=== PATIENT | male | born 1965 | race Caucasian/White ===

== ENCOUNTER 2016-07-17 09:49 | Inpatient (IN) | payer OTHER ==
[~2016-07-17] VITALS: Ht 177.8 cm; Wt 80.6 kg
[2016-07-17] VITALS (7 sets, daily range): BP systolic 127–145; BP diastolic 78–83; PULSE 81–104; TEMP 36.4–37.2; O2SAT 94–100; Ht 177.8 cm; Wt 80.6 kg
[2016-07-17] MEDS ORDERED: HYDROmorphone INJ 1 MG/ML SYR ONE (10:02)
[2016-07-17] MEDS ORDERED: SODIUM CHLORIDE 0.9% 1000ML 1,000 ML IV STA (10:03)
[2016-07-17] MEDS ORDERED: ONDANSETRON INJ 2 MG/ML 2 ML VIAL ONE (10:04)
[2016-07-17] MEDS ORDERED: KETOROLAC TROMETHAMINE 30 MG/ML VIAL ONE (10:12)
[2016-07-17] MEDS ORDERED: KETOROLAC TROMETHAMINE 30 MG/ML VIAL IV STA (10:13)
[2016-07-17 10:15] LABS: ISTAT CREATININE 0.9 mg/dl (0.6-1.3); ISTAT HEMOGLOBIN 13.9 g/dl (14.0-18.0); ISTAT IONIZED CALCIUM 1.16 mmol/l (1.12-1.32)
[2016-07-17] MEDS ORDERED: HYDROmorphone INJ 1 MG/ML SYR IV PRN (10:15)
[2016-07-17 10:16] LABS: BASO % 0.2 %; BASO ABS # 0.02 K/uL (0-0.2); COMPLETE YES; EOS % 2.5 %; HEMATOCRIT 39.8 % (42-52); IG% 0.7 %; LYMPH % 23.1 %; MEAN CELL VOLUME 86.9 fL (80-100); MEAN CORPUSCULAR HEMOGLOBIN 31.9 pg (25-34); MEAN CORPUSCULAR HGB CONC 36.7 g/dl (32-36); MEAN PLATELET VOLUME 10.1 fL (7.4-10.4); MONO % 4.6 %; NEUT % 68.9 %; PLATELET COUNT 243 K/uL (130-400); RED BLOOD COUNT 4.58 M/uL (4.7-6.1); WHITE BLOOD COUNT 8.67 K/uL (4.8-10.8)
[2016-07-17 10:30] LABS: ALT/SGPT 25 U/L (12-78); AST/SGOT 13 U/L (15-37); BLOOD UREA NITROGEN 17 mg/dl (7-18); BUN/CREATININE RATIO 15.9 (10-20); CALCIUM 8.3 mg/dl (8.5-10.1); CARBON DIOXIDE 23 mmol/L (21-32); CHLORIDE 109 mmol/L (98-107); GLUCOSE 120 mg/dl (70-99); POTASSIUM 3.6 mmol/L (3.5-5.1); SODIUM 143 mmol/L (136-145)
[2016-07-17 10:32] LABS: ALKALINE PHOSPHATASE 45 U/L (45-117)
--- NOTE | 2016-07-17 10:32 | DIAGNOSTIC IMAGING REPORT ---
ABDOMEN AND PELVIS CT WITHOUT CONTRAST CT DOSE: 619.72 mGy.cm HISTORY: Flank pain FLANK PAIN TECHNIQUE: Multiaxial CT images of the abdomen and pelvis were performed without the use of intravenous and oral contrast according to the standard department stone protocol. COMPARISON STUDY: None. FINDINGS: Lung bases are clear. Liver demonstrates several small hypodensities statistically consistent with that of small cysts. Spleen is uniform. Pancreas is unremarkable. Right kidney demonstrates slight degree of cortical lobulation. It is negative for hydronephrosis. Left kidney shows moderate hydronephrosis and hydroureter. There is a 4 mm nonobstructing calcification lower pole left kidney. There is a small exophytic cyst. There is moderate periureteral infiltrative change. There is a 3 mm obstructing calculus left ureterovesical junction. Bladder is midline. There is a left inguinal hernia containing a small diverticulum of the bladder. There is a small right inguinal hernia showing no significant bowel content. Bowel pattern overall is nonobstructive. IMPRESSION: 1. 3 mm obstructing calculus left ureteral vesicle junction. 2. Moderate left hydroureteronephrosis. 3. Small diverticulum of the bladder extending into a left inguinal hernia. This is an incidental finding. Electronically signed by: Micheal Houston M.D. 07/17/2016 10:31 AM Dictated Date/Time: 07/17/2016 10:26 AM
[2016-07-17] MEDS ORDERED: PROMETHAZINE HCL INJ 25 MG in SODIUM CHLORIDE 0.9% 50ML 50 ML IV STA (11:01)
[2016-07-17] MEDS ORDERED: MULTTAB58 PO (11:44)
[2016-07-17] MEDS ORDERED: MoRPHine SULFATE 4 MG/ML 1 ML CARP\\VIAL IV PRN (11:45)
[2016-07-17] MEDS ORDERED: KETOROLAC TROMETHAMINE 30 MG/ML VIAL IV PRN (11:45)
[2016-07-17] MEDS ORDERED: ONDANSETRON INJ 2 MG/ML 2 ML VIAL IV PRN (11:45)
[2016-07-17] MEDS ORDERED: ACETAMINOPHEN 325 MG TAB PO PRN (11:45)
[2016-07-17 12:45] LABS: URINE APPEARANCE CLEAR (CLEAR); URINE BILIRUBIN NEG (NEG); URINE COLOR YELLOW; URINE NITRITE NEG (NEG); URINE PH 5.5 (4.5-7.5); URINE SPECIFIC GRAVITY 1.017 (1.000-1.030); UROBILINOGEN NEG (NEG)
[2016-07-17 12:56] LABS: MANUAL MICROSCOPIC REQUIRED? NO; REVIEW REQ? NO
[2016-07-17] MEDS ORDERED: TAMSULOSIN HCL 0.4 MG CAP PO ONE (13:30)
[2016-07-17] MEDS: SODIUM CHLORIDE 0.9% 1000ML 1,000 ML IV SCH ×2 (13:30→20:10)
--- NOTE | 2016-07-17 13:46 | History and Physical ---
History & Physical Date & Time of Service: Jul 17, 2016 at 11:45 Chief Complaint: Abdoninal Pain Primary Care Physician: No Doctor, Assigned History of Present Illness Source: patient This is a 51 y/o male with no known PMHx who presents to the ED c/o L lower abd pain that began this morning. Pt reports that around 0830 he developed 9/10 sharp/stabbing left lower abd pain that did not radiate anywhere. The pain was so severe he became lightheaded and felt like he might pass out. His sxs are assoc with nausea and 2 episodes of vomiting. Pt denies any medical problems but does not follow with his PCP regularly. Pt denies fever/chills, diaphoresis , chest pain, SOB, constipation, diarrhea, dysuria, hematuria, LE edema or calf pain. In the ED, vitals are stable. Pt is afebrile with no leukocytosis. CT abd/ pelvis + 3mm UVJ stone on L side with moderate hydronephrosis. Pt received IVF, pain medication and antiemetics in the ED. He currently rates his pain at a 5/ 10. Pt is stable and will be admitted for further evaluation and treatment. Past Medical/Surgical History Medical Problems: (1) Left inguinal hernia Status: Chronic Family History Patient reports no known family medical history. Social History Smoking Status: Never Smoker Alcohol Use: occasionally (twice monthly) Drug Use: none Marital Status: single Housing status: lives with family (lives with 6 y/o son) Occupational Status: employed Allergies Coded Allergies: Penicillins (Unverified Allergy, Unknown, ., 07/17/16) Home Medications Scheduled Multiple Vitamin (Multivitamin), 1 TAB PO DAILY Review of Systems Constitutional: No chills, No fatigue, No fever, No sweats, No weakness Eyes: No worsening of vision ENT: No hearing loss Respiratory: No cough, No shortness of breath Cardiovascular: No chest pain, No claudication, No edema Abdomen: + nausea, + pain, + vomiting, No constipation, No diarrhea Musculoskeletal: No calf pain, No swelling Genitourinary - Male: No dysuria, No hematuria, No urinary retention Neurologic: No weakness Psychiatric: No depression symptoms Endocrine: No fatigue Hematologic / Lymphatic: No abnormal bleeding/bruising Integumentary: No new/changing skin lesions Physical Exam Vital Signs Date Time Temp Pulse Resp B/P Pulse Ox O2 Delivery O2 Flow Rate FiO2 07/17/16 10:33 74 07/17/16 10:25 95 Nasal Cannula 2.0 07/17/16 10:16 86 20 143/95 98 Room Air 07/17/16 09:51 36.5 24 18 136/81 99 Room Air General Appearance: WD/WN, no apparent distress, + pertinent finding (Pt is laying in bed with brother at bedside ) Head: normocephalic, atraumatic Eyes: normal inspection ENT: normal ENT inspection Neck: supple Respiratory/Chest: chest non-tender, lungs clear, normal breath sounds, no respiratory distress Cardiovascular: regular rate, rhythm, no edema, no murmur Abdomen/GI: normal bowel sounds, soft, + tenderness (left lower quadrant) Back: normal inspection, no CVA tenderness Extremities/Musculoskelatal: normal inspection, no calf tenderness, no pedal edema Neurologic/Psych: alert, normal mood/affect, oriented x 3 Skin: normal color, warm/dry Diagnostics Laboratory Results Results Past 24 Hours Test 07/17/16 09:55 07/17/16 10:00 Range/Units White Blood Count 8.67 4.8-10.8 K/uL Red Blood Count 4.58 4.7-6.1 M/uL Hemoglobin 14.6 14.0-18.0 g/dL Hematocrit 39.8 42-52 % Mean Corpuscular Volume 86.9 80-100 fL Mean Corpuscular Hemoglobin 31.9 25-34 pg Mean Corpuscular Hemoglobin Concent 36.7 32-36 g/dl Platelet Count 243 130-400 K/uL Mean Platelet Volume 10.1 7.4-10.4 fL Neutrophils (%) (Auto) 68.9 % Lymphocytes (%) (Auto) 23.1 % Monocytes (%) (Auto) 4.6 % Eosinophils (%) (Auto) 2.5 % Basophils (%) (Auto) 0.2 % Neutrophils # (Auto) 5.97 1.4-6.5 K/uL Lymphocytes # (Auto) 2.00 1.2-3.4 K/uL Monocytes # (Auto) 0.40 0.11-0.59 K/uL Eosinophils # (Auto) 0.22 0-0.5 K/uL Basophils # (Auto) 0.02 0-0.2 K/uL RDW Standard Deviation 40.3 36.4-46.3 fL RDW Coefficient of Variation 12.6 11.5-14.5 % Immature Granulocyte % (Auto) 0.7 % Immature Granulocyte # (Auto) 0.06 0.00-0.02 K/uL Sodium Level 143 136-145 mmol/L Potassium Level 3.6 3.5-5.1 mmol/L Chloride Level 109 98-107 mmol/L Carbon Dioxide Level 23 21-32 mmol/L Anion Gap 11.0 20.0 16-25 mmol/L Blood Urea Nitrogen 17 7-18 mg/dl Creatinine 1.10 0.60-1.40 mg/dl Est Creatinine Clear Calc Drug Dose 82.0 ml/min Estimated GFR () 89.6 Estimated GFR (Non- 77.3 BUN/Creatinine Ratio 15.9 10-20 Random Glucose 120 70-99 mg/dl Calcium Level 8.3 8.5-10.1 mg/dl Total Bilirubin 0.2 0.2-1 mg/dl Direct Bilirubin < 0.1 0-0.2 mg/dl Aspartate Amino Transf (AST/SGOT) 13 15-37 U/L Alanine Aminotransferase (ALT/SGPT) 25 12-78 U/L Alkaline Phosphatase 45 45-117 U/L Total Protein 6.7 6.4-8.2 gm/dl Albumin 3.8 3.4-5.0 gm/dl Lipase 238 73-393 U/L Bedside Hemoglobin 13.9 14.0-18.0 g/dl Bedside Hematocrit 41 42-52 % Bedside Sodium 142 135-144 mEq/L Bedside Potassium 3.6 3.3-5.0 mEq/L Bedside Chloride 105 101-112 mEq/L Bedside Total CO2 21 24-31 mEq/l Bedside Blood Urea Nitrogen 18 7-18 mg/dl Bedside Creatinine 0.9 0.6-1.3 mg/dl Bedside Glucose (other) 124 70-99 mg/dl Bedside Ionized Calcium (Shakira) 1.16 1.12-1.32 mmol/l Diagnostic Radiology CT ABD/PELVIS IMPRESSION: 1. 3 mm obstructing calculus left ureteral vesicle junction. 2. Moderate left hydroureteronephrosis. 3. Small diverticulum of the bladder extending into a left inguinal hernia. This is an incidental finding. EKG EKG: NSR at 84 bpm with no acute ischemic change; no previous EKG available for comparison Impression Assessment and Plan L SIDED UVJ STONE pt presented with left lower abd pain assoc with N/V and lightheadedness dizziness -admit to med/surg -pt is afebrile with no leukocytosis; UA neg -CT abd/pelvis + 3mm calculus in L UVJ with mod hydronephrosis -cont IVF and Flomax -pain meds and anti-emetics PRN -strain urine -when stone passes; send stone for analysis -monitor DVT PROPHYLAXIS -Low VTE risk -SCDs CODE STATUS -FULL CODE status DISPO -Pt seen in collaboration with Dr. Justin. Please see her addendum for further details. Thanks! ATTENDING ADDENDUM Record reviewed. Patient interviewed and examined. Care coordinated with Pretty Latif PA-C. Please refer to her documentation for patient's history. This is a 51 yoM with no significant medical history and no history of nephrolithiasis who presents with significant pain 2/2 ureteral stone. He has intractable nausea and vomiting 2/2 to the pain despite attempts to control this in the ER, and so was admitted for supportive care. On exam he is hemodynamically stable and afebrile. Exam was unremarkable except for some somnolence after receiving IV narcotics in the ER an some LLQ abdominal tenderness to palpation. No CVA tenderness was appreciated. Lung and heart exam were normal. Agree with above assessment and plan including IVF, Flomax, clears and anti-emetics, pain meds as needed. Will attempt to help him pass this for 24 hours, then if still having issues, would recommend Urology consult. Urine will be strained with stone analysis pre-ordered. Pt was admitted to floor. Britt Justin DO (Hospitalist) Level of Care Med/Surg Resuscitation Status FULL RESUSCITATION VTE Prophylaxis VTE Risk Assessment Done? Y/N: Yes Risk Level: Low Given or contraindicated: SCD's Social Service Consult None Apply
--- NOTE | 2016-07-17 18:10 | EMERGENCY ROOM VISIT NOTE ---
History Report prepared by Lucila: Nick Vogel Under the Supervision of: Dr. Vic Saavedra M.D. First contact with patient: 09:50 Chief Complaint: ABDOMINAL PAIN Stated Complaint: ABDONINAL PAIN History of Present Illness The patient is a 51 year old male who presents to the Emergency Room via ambulance with complaints of persistent abdominal pain since this morning. The patient notes that the pain became much worse after having a bowel movement this morning. The patient also complains of nausea. He has some pain in the groin/testicle area. The patient has two doses of 100 mcg Fentanyl in the ambulance en route to the ED. He was also given 4 mg Zofran. The patient had only some relief from the medications. The patient has a history of left inguinal hernia. He denies any history of kidney stones. The patient rarely follows up with a physician. He does not take any prescription medications. Patient denies LOC, headache, fevers, chills, diaphoresis, visual changes, neck pain, chest pain, back pain, breathing difficulties, vomiting, back pain, melena , hematochezia, urinary symptoms, numbness, weakness, lymphadenopathy, rash, or other complaints. Source of History: patient Onset: this morning Position: abdomen Timing: other (persistent) Modifying Factors (Worsening): other (bowel movement) Modifying Factors (Relieving): other (Fentanyl + Zofran) Associated Symptoms: + nausea Review of Systems See HPI for pertinent positives and negatives. A total of ten systems were reviewed and were otherwise negative. Past Medical & Surgical Medical Problems: (1) Left inguinal hernia (2) Renal calculi Family History Patient reports no known family medical history. Social History Occupation Status: employed Current/Historical Medications Scheduled Multiple Vitamin (Multivitamin), 1 TAB PO DAILY Allergies Coded Allergies: Penicillins (Unverified Allergy, Unknown, ., 07/17/16) Physical Exam Vital Signs Date Time Temp Pulse Resp B/P Pulse Ox O2 Delivery O2 Flow Rate FiO2 07/17/16 10:33 74 07/17/16 10:25 95 Nasal Cannula 2.0 07/17/16 10:16 86 20 143/95 98 Room Air 07/17/16 09:51 36.5 24 18 136/81 99 Room Air Physical Exam GENERAL: Awake, alert, uncomfortable-appearing, in moderate distress HENT: Normocephalic, atraumatic. Oropharynx unremarkable. EYES: Normal conjunctiva. Sclera non-icteric. NECK: Supple. No nuchal rigidity. FROM. No JVD. RESPIRATORY: Clear to auscultation. CARDIAC: Regular rate, normal rhythm. Extremities warm and well perfused. Pulses equal. ABDOMEN: Soft, non-distended. Mild left sided abdominal pain. No rebound or guarding. No masses. RECTAL: Deferred. MUSCULOSKELETAL: Chest examination reveals no tenderness. The back is symmetrical on inspection without obvious abnormality. There is no CVA tenderness to palpation. No joint edema. LOWER EXTREMITIES: Calves are equal size bilaterally and non-tender. No edema. No discoloration. NEURO: Normal sensorium. No sensory or motor deficits noted. SKIN: No rash or jaundice noted. : Nontender left inguinal hernia. Medical Decision & Procedures ER Provider Diagnostic Interpretation: Radiology results as stated below per my review and radiologist interpretation ABDOMEN AND PELVIS CT WITHOUT CONTRAST CT DOSE: 619.72 mGy.cm HISTORY: Flank pain FLANK PAIN TECHNIQUE: Multiaxial CT images of the abdomen and pelvis were performed without the use of intravenous and oral contrast according to the standard department stone protocol. COMPARISON STUDY: None. FINDINGS: Lung bases are clear. Liver demonstrates several small hypodensities statistically consistent with that of small cysts. Spleen is uniform. Pancreas is unremarkable. Right kidney demonstrates slight degree of cortical lobulation. It is negative for hydronephrosis. Left kidney shows moderate hydronephrosis and hydroureter. There is a 4 mm nonobstructing calcification lower pole left kidney. There is a small exophytic cyst. There is moderate periureteral infiltrative change. There is a 3 mm obstructing calculus left ureterovesical junction. Bladder is midline. There is a left inguinal hernia containing a small diverticulum of the bladder. There is a small right inguinal hernia showing no significant bowel content. Bowel pattern overall is nonobstructive. IMPRESSION: 1. 3 mm obstructing calculus left ureteral vesicle junction. 2. Moderate left hydroureteronephrosis. 3. Small diverticulum of the bladder extending into a left inguinal hernia. This is an incidental finding. Electronically signed by: Micheal Houston M.D. 07/17/2016 10:31 AM Dictated Date/Time: 07/17/2016 10:26 AM Laboratory Results 07/17/16 09:55 Red Blood Count 4.58, Mean Corpuscular Volume 86.9, Mean Corpuscular Hemoglobin 31.9, Mean Corpuscular Hemoglobin Concent 36.7, Mean Platelet Volume 10.1, Neutrophils (%) (Auto) 68.9, Lymphocytes (%) (Auto) 23.1, Monocytes (%) (Auto) 4.6, Eosinophils (%) (Auto) 2.5, Basophils (%) (Auto) 0.2, Neutrophils # (Auto) 5.97, Lymphocytes # (Auto) 2.00, Monocytes # (Auto) 0.40, Eosinophils # (Auto) 0.22, Basophils # (Auto) 0.02 07/17/16 09:55 Test 07/17/16 09:55 07/17/16 10:00 White Blood Count 8.67 K/uL (4.8-10.8) Red Blood Count 4.58 M/uL (4.7-6.1) Hemoglobin 14.6 g/dL (14.0-18.0) Hematocrit 39.8 % (42-52) Mean Corpuscular Volume 86.9 fL (80-100) Mean Corpuscular Hemoglobin 31.9 pg (25-34) Mean Corpuscular Hemoglobin Concent 36.7 g/dl (32-36) Platelet Count 243 K/uL (130-400) Mean Platelet Volume 10.1 fL (7.4-10.4) Neutrophils (%) (Auto) 68.9 % Lymphocytes (%) (Auto) 23.1 % Monocytes (%) (Auto) 4.6 % Eosinophils (%) (Auto) 2.5 % Basophils (%) (Auto) 0.2 % Neutrophils # (Auto) 5.97 K/uL (1.4-6.5) Lymphocytes # (Auto) 2.00 K/uL (1.2-3.4) Monocytes # (Auto) 0.40 K/uL (0.11-0.59) Eosinophils # (Auto) 0.22 K/uL (0-0.5) Basophils # (Auto) 0.02 K/uL (0-0.2) RDW Standard Deviation 40.3 fL (36.4-46.3) RDW Coefficient of Variation 12.6 % (11.5-14.5) Immature Granulocyte % (Auto) 0.7 % Immature Granulocyte # (Auto) 0.06 K/uL (0.00-0.02) Est Creatinine Clear Calc Drug Dose 82.0 ml/min Estimated GFR () 89.6 Estimated GFR (Non- 77.3 BUN/Creatinine Ratio 15.9 (10-20) Calcium Level 8.3 mg/dl (8.5-10.1) Total Bilirubin 0.2 mg/dl (0.2-1) Direct Bilirubin < 0.1 mg/dl (0-0.2) Aspartate Amino Transf (AST/SGOT) 13 U/L (15-37) Alanine Aminotransferase (ALT/SGPT) 25 U/L (12-78) Alkaline Phosphatase 45 U/L (45-117) Total Protein 6.7 gm/dl (6.4-8.2) Albumin 3.8 gm/dl (3.4-5.0) Lipase 238 U/L (73-393) Hepatitis C Antibody Screen NEG (NEG) Bedside Hemoglobin 13.9 g/dl (14.0-18.0) Bedside Hematocrit 41 % (42-52) Bedside Sodium 142 mEq/L (135-144) Bedside Potassium 3.6 mEq/L (3.3-5.0) Bedside Chloride 105 mEq/L (101-112) Bedside Total CO2 21 mEq/l (24-31) Anion Gap 20.0 mmol/L (16-25) Bedside Blood Urea Nitrogen 18 mg/dl (7-18) Bedside Creatinine 0.9 mg/dl (0.6-1.3) Bedside Glucose (other) 124 mg/dl (70-99) Bedside Ionized Calcium (Shakira) 1.16 mmol/l (1.12-1.32) Laboratory results reviewed by me Medications Administered Medications (Trade) Dose Ordered Sig/Keli Route Start Time Stop Time Status Last Admin Dose Admin Hydromorphone HCl 1 mg 1 mg STK-MED ONCE .ROUTE 07/17/16 10:02 07/17/16 10:04 DC 07/17/16 10:02 1 MG Sodium Chloride (Nss 1000ml) 1,000 ml @ 200 mls/hr Q5H STAT IV 07/17/16 10:03 07/17/16 13:13 DC 07/17/16 10:03 200 MLS/HR Ondansetron HCl (Zofran Inj) 4 mg STK-MED ONCE .ROUTE 2/8/17 10:04 07/17/16 10:06 DC 07/17/16 10:04 4 MG Hydromorphone HCl (Dilaudid Inj) 1 mg Q10M PRN IV 07/17/16 10:15 07/17/16 13:13 DC 07/17/16 11:05 1 MG Ketorolac Tromethamine 30 mg 30 mg STK-MED ONCE .ROUTE 07/17/16 10:12 07/17/16 10:14 DC 07/17/16 10:12 30 MG Promethazine HCl/ Sodium Chloride (Phenergan Inj/ Nss 50ml) 51 ml @ 204 mls/hr NOW STAT IV 07/17/16 11:01 07/17/16 11:15 DC 07/17/16 11:18 204 MLS/HR ECG Indication: abdominal pain Rate (beats per minute): 84 Rhythm: sinus rhythm Findings: no acute ischemic change, no ectopy ED Course 0956: The patient was evaluated in room B7. A complete history and physical exam was performed. 1005: ISTAT unremarkable, hemoglobin and creatinine are normal. 1013: Toradol 10 mg IV. 1015: Dilaudid 1 mg IV. 1101: Promethazine HCl 25 mg / NSS 51 ml @ 204 mls/hr. 1100: The patient was feeling better but his pain is starting to come back. He started vomiting. 1109: [facility] Lat[facility] The patient will be evaluated. Medical Decision Triage Nursing notes reviewed. The patient's presentation and history were concerning for abdominal pain and vomiting. Etiologies such as diverticulitis, obstruction, inflammatory bowel disease, renal colic, PUD, biliary pathology, pancreatitis, mesenteric ischemia, aortic pathology, infections, genitourinary, UTI, appendicitis,perforated viscus, as well as others were entertained. The patient was evaluated. He received fentanyl prehospital and was still very much uncomfortable. His examination revealed a hernia but this was nontender. He did not appear incarcerated. The patient was given IV Dilaudid. Because of this distress he was taken to CT imaging emergently due to concerns for possible bowel or aortic catastrophe. The patient had a noncontrast study performed and this revealed hydronephrosis and a ureteral stone. This explains the patient's symptoms. He was given additional Dilaudid. The patient was also given Toradol. On reassessment he was feeling better but then the pain returned. He also had vomiting. Additional treatment was given. I discussed further management in the hospital. CBC, chemistry panel, and urinalysis were unremarkable. Radiology confirm the presence of a 3 mm ureteral stone. I consulted with the [facility] service. The patient was evaluated and admitted for further treatment. The chart was completed utilizing [employer] Speech voice recognition software. Grammatical errors, random word insertions, pronoun errors, and incomplete sentences are an occasional consequence of this system due to software limitations, ambient noise, and hardware issues. Any formal questions or concerns about the content, text, or information contained within the body of this dictation should be directly addressed to the physician for clarification. Consults Time Called: 1100 Consulting Physician: Pretty Lat[facility]-C, [facility] Returned Call: [phone]: Sp[facility] Lat[facility]. The patient will be evaluated. Impression Primary Impression: Kidney stone Additional Impressions: Vomiting Intractable pain Scribe Attestation The scribe's documentation has been prepared under my direction and personally reviewed by me in its entirety. I confirm that the note above accurately reflects all work, treatment, procedures, and medical decision making performed by me. Departure Information Dispostion Being Evaluated By Hospitalist Patient Instructions My [facility] Health Problem Qualifiers
[2016-07-18] MEDS: SODIUM CHLORIDE 0.9% 1000ML 1,000 ML IV SCH ×2 (03:30→09:27)
[2016-07-18 04:17] VITALS: BP 123/79; PULSE 82; TEMP 37.1; O2SAT 96
[2016-07-18 06:00] LABS: HEMATOCRIT 38.6 % (42-52); MEAN CELL VOLUME 88.9 fL (80-100); MEAN CORPUSCULAR HEMOGLOBIN 31.8 pg (25-34); MEAN CORPUSCULAR HGB CONC 35.8 g/dl (32-36); MEAN PLATELET VOLUME 10.3 fL (7.4-10.4); PLATELET COUNT 186 K/uL (130-400); RED BLOOD COUNT 4.34 M/uL (4.7-6.1); WHITE BLOOD COUNT 9.06 K/uL (4.8-10.8)
[2016-07-18 06:44] LABS: BUN/CREATININE RATIO 10.5 (10-20); CALCIUM 8.2 mg/dl (8.5-10.1); CREATININE 0.9 mg/dl (0.60-1.40); POTASSIUM 3.8 mmol/L (3.5-5.1)
[2016-07-18 07:04] VITALS: BP 130/79; PULSE 77; TEMP 36.4; O2SAT 96
[2016-07-18 07:45] VITALS: O2SAT 96
[2016-07-18] MEDS ORDERED: TAMSULOSIN HCL 0.4 MG CAP PO SCH (09:00)
[2016-07-18] MEDS ORDERED: MULTIVITAMIN TAB PO SCH (09:00)
--- NOTE | 2016-07-18 09:20 | Progress Note ---
Internal Med Progress Note Date of Service: Jul 18, 2016. Provider Documentation: SUBJECTIVE: Patient passed stone spontaneously today. No pain, nausea, vomiting, fever, chills Clear liquid diet + asking for solid food OBJECTIVE: Vital Signs-as noted below Exam: General-AAO X 3, No distress Neck-Supple, No Jvd Lungs-AEBE, clear Heart-S1, S2 normal, no murmur Abdomen-soft, non tender, non distended, BS present Extremities-No edema Lab data as noted below. ASSESSMENT & PLAN: LEFT SIDED UVJ STONE : Pt presented with left lower abdominal pain assoc with N/V and lightheadedness dizziness Spontaneously passed stone today and now pain free -CT abd/pelvis + 3mm calculus in Lt UVJ with mod hydronephrosis -IVF, Flomax, Pain management -Stone sent for analysis DVT PROPHYLAXIS -Low VTE risk -SCDs CODE STATUS -FULL CODE status DISPOSITION Ok to discharge today Vital Signs: Date Time Temp Pulse Resp B/P Pulse Ox O2 Delivery O2 Flow Rate FiO2 07/18/16 07:45 96 Room Air 07/18/16 07:04 36.4 77 20 130/79 96 Nasal Cannula 07/18/16 04:17 37.1 82 18 123/79 96 Room Air 07/18/16 00:00 Room Air 07/17/16 23:06 36.6 81 18 127/79 96 Room Air 07/17/16 20:06 37.2 104 18 138/78 95 Room Air 07/17/16 16:07 37.2 99 16 128/78 96 Room Air 07/17/16 16:00 94 Room Air 07/17/16 13:45 36.4 83 18 145/83 94 Room Air 07/17/16 13:41 36.4 83 18 145/83 100 Room Air 07/17/16 13:30 94 Room Air 07/17/16 13:12 76 14 124/82 99 07/17/16 12:00 90 15 129/76 97 Nasal Cannula 2.0 07/17/16 10:33 74 07/17/16 10:25 95 Nasal Cannula 2.0 07/17/16 10:16 86 20 143/95 98 Room Air 07/17/16 09:51 36.5 24 18 136/81 99 Room Air Lab Results: Results Past 24 Hours Test 07/17/16 09:55 07/17/16 10:00 07/17/16 12:24 07/17/16 13:06 Range/Units White Blood Count 8.67 4.8-10.8 K/uL Red Blood Count 4.58 4.7-6.1 M/uL Hemoglobin 14.6 14.0-18.0 g/dL Hematocrit 39.8 42-52 % Mean Corpuscular Volume 86.9 80-100 fL Mean Corpuscular Hemoglobin 31.9 25-34 pg Mean Corpuscular Hemoglobin Concent 36.7 32-36 g/dl Platelet Count 243 130-400 K/uL Mean Platelet Volume 10.1 7.4-10.4 fL Neutrophils (%) (Auto) 68.9 % Lymphocytes (%) (Auto) 23.1 % Monocytes (%) (Auto) 4.6 % Eosinophils (%) (Auto) 2.5 % Basophils (%) (Auto) 0.2 % Neutrophils # (Auto) 5.97 1.4-6.5 K/uL Lymphocytes # (Auto) 2.00 1.2-3.4 K/uL Monocytes # (Auto) 0.40 0.11-0.59 K/uL Eosinophils # (Auto) 0.22 0-0.5 K/uL Basophils # (Auto) 0.02 0-0.2 K/uL RDW Standard Deviation 40.3 36.4-46.3 fL RDW Coefficient of Variation 12.6 11.5-14.5 % Immature Granulocyte % (Auto) 0.7 % Immature Granulocyte # (Auto) 0.06 0.00-0.02 K/uL Sodium Level 143 136-145 mmol/L Potassium Level 3.6 3.5-5.1 mmol/L Chloride Level 109 98-107 mmol/L Carbon Dioxide Level 23 21-32 mmol/L Anion Gap 11.0 20.0 16-25 mmol/L Blood Urea Nitrogen 17 7-18 mg/dl Creatinine 1.10 0.60-1.40 mg/dl Est Creatinine Clear Calc Drug Dose 82.0 ml/min Estimated GFR () 89.6 Estimated GFR (Non- 77.3 BUN/Creatinine Ratio 15.9 10-20 Random Glucose 120 70-99 mg/dl Calcium Level 8.3 8.5-10.1 mg/dl Total Bilirubin 0.2 0.2-1 mg/dl Direct Bilirubin < 0.1 0-0.2 mg/dl Aspartate Amino Transf (AST/SGOT) 13 15-37 U/L Alanine Aminotransferase (ALT/SGPT) 25 12-78 U/L Alkaline Phosphatase 45 45-117 U/L Total Protein 6.7 6.4-8.2 gm/dl Albumin 3.8 3.4-5.0 gm/dl Lipase 238 73-393 U/L Hepatitis C Antibody Screen NEG NEG Bedside Hemoglobin 13.9 14.0-18.0 g/dl Bedside Hematocrit 41 42-52 % Bedside Sodium 142 135-144 mEq/L Bedside Potassium 3.6 3.3-5.0 mEq/L Bedside Chloride 105 101-112 mEq/L Bedside Total CO2 21 24-31 mEq/l Bedside Blood Urea Nitrogen 18 7-18 mg/dl Bedside Creatinine 0.9 0.6-1.3 mg/dl Bedside Glucose (other) 124 70-99 mg/dl Bedside Ionized Calcium ([place]akira) 1.16 1.12-1.32 mmol/l Urine Color YELLOW Urine Appearance CLEAR CLEAR Urine pH 5.5 4.5-7.5 Urine Specific [place] 1.017 1.000-1.030 Urine Protein NEG NEG Urine Glucose (UA) NEG NEG Urine Ketones NEG NEG Urine Occult Blood NEG NEG Urine Nitrite NEG NEG Urine Bilirubin NEG NEG Urine Urobilinogen NEG NEG Urine Leukocyte Esterase NEG NEG Test 07/18/16 05:35 Range/Units White Blood Count 9.06 4.8-10.8 K/uL Red Blood Count 4.34 4.7-6.1 M/uL Hemoglobin 13.8 14.0-18.0 g/dL Hematocrit 38.6 42-52 % Mean Corpuscular Volume 88.9 80-100 fL Mean Corpuscular Hemoglobin 31.8 25-34 pg Mean Corpuscular Hemoglobin Concent 35.8 32-36 g/dl RDW Standard Deviation 42.2 36.4-46.3 fL RDW Coefficient of Variation 12.9 11.5-14.5 % Platelet Count 186 130-400 K/uL Mean Platelet Volume 10.3 7.4-10.4 fL Sodium Level 144 136-145 mmol/L Potassium Level 3.8 3.5-5.1 mmol/L Chloride Level 112 98-107 mmol/L Carbon Dioxide Level 23 21-32 mmol/L Anion Gap 9.0 3-11 mmol/L Blood Urea Nitrogen 9 7-18 mg/dl Creatinine 0.90 0.60-1.40 mg/dl Est Creatinine Clear Calc Drug Dose 100.3 ml/min Estimated GFR () 114.2 Estimated GFR (Non- 98.5 BUN/Creatinine Ratio 10.5 10-20 Random Glucose 92 70-99 mg/dl Calcium Level 8.2 8.5-10.1 mg/dl Microbiology Results 07/17/16 Urine Culture, Received Pending
--- NOTE | 2016-07-18 09:23 | Discharge Instructions ---
Discharge Instructions Admission Reason for Admission: Renal Calculi Discharge Discharge Diagnosis / Problem: 1. Left Ureteral stone Discharge Goals Goal(s): Diagnostic testing, Therapeutic intervention Activity Recommendations Activity Limitations: resume your previous activity . Instructions / Follow-Up Instructions / Follow-Up No changes in medications Current Hospital Diet Patient's current hospital diet: Regular Diet Discharge Diet Recommended Diet: Regular Diet Pending Studies Studies pending at discharge: no Medical Emergencies . Who to Call and When: Medical Emergencies: If at any time you feel your situation is an emergency, please call 911 immediately. . Non-Emergent Contact Non-Emergency issues call your: Primary Care Provider . . "Provider Documentation" section prepared by Raine Virgen. VTE Core Measure Inpt VTE Proph given/why not?: SCD's
--- NOTE | 2016-07-18 09:25 | Discharge Summary ---
Discharge Summary Admission Date: Jul 17, 2016 at 11:41 Discharge Date: Jul 18, 2016 Discharge Disposition: Home Principal Diagnosis: 1. Left sided UVJ stone S/P Spontaneous passing Procedures: IV fluids Flomax CT scan abdomen/pelvis Consultations: None Pending Studies/Follow-Up: No changes in medications Medication Reconciliation Continued Medications: Multiple Vitamin (Multivitamin) 1 Tab Tab 1 TAB PO DAILY for 90 Days, #90 TAB 3 Refills Admission Information HPI (per Admitting provider): This is a 51 y/o male with no known PMHx who presents to the ED c/o L lower abd pain that began this morning. Pt reports that around 0830 he developed 9/10 sharp/stabbing left lower abd pain that did not radiate anywhere. The pain was so severe he became lightheaded and felt like he might pass out. His sxs are assoc with nausea and 2 episodes of vomiting. Pt denies any medical problems but does not follow with his PCP regularly. Pt denies fever/chills, diaphoresis , chest pain, SOB, constipation, diarrhea, dysuria, hematuria, LE edema or calf pain. In the ED, vitals are stable. Pt is afebrile with no leukocytosis. CT abd/ pelvis + 3mm UVJ stone on L side with moderate hydronephrosis. Pt received IVF, pain medication and antiemetics in the ED. He currently rates his pain at a 5/ 10. Pt is stable and will be admitted for further evaluation and treatment. Physical Exam (per Admitting): General Appearance: WD/WN, no apparent distress, + pertinent finding (Pt is laying in bed with brother at bedside ) Head: normocephalic, atraumatic Eyes: normal inspection ENT: normal ENT inspection Neck: supple Respiratory/Chest: chest non-tender, lungs clear, normal breath sounds, no respiratory distress Cardiovascular: regular rate, rhythm, no edema, no murmur Abdomen/GI: normal bowel sounds, soft, + tenderness (left lower quadrant) Back: normal inspection, no CVA tenderness Extremities/Musculoskelatal: normal inspection, no calf tenderness, no pedal edema Neurologic/Psych: alert, normal mood/affect, oriented x 3 Skin: normal color, warm/dry Hospital Course LEFT SIDED UVJ STONE : Pt presented with left lower abdominal pain assoc with N/V and lightheadedness dizziness Spontaneously passed stone today and now pain free -CT abd/pelvis + 3mm calculus in Lt UVJ with mod hydronephrosis -IVF, Flomax, Pain management -Stone sent for analysis DVT PROPHYLAXIS -Low VTE risk -SCDs CODE STATUS -FULL CODE status DISPOSITION Ok to discharge today Total time spent on discharge = 28 minutes This includes examination of the patient, discharge planning, medication reconciliation, and communication with other providers. Discharge Instructions Activity Recommendations Activity Limitations: resume your previous activity . Instructions / Follow-Up Instructions / Follow-Up No changes in medications Current Hospital Diet Patient's current hospital diet: Regular Diet Discharge Diet Recommended Diet: Regular Diet Pending Studies Studies pending at discharge: no Medical Emergencies . Who to Call and When: Medical Emergencies: If at any time you feel your situation is an emergency, please call 911 immediately. . Non-Emergent Contact Non-Emergency issues call your: Primary Care Provider . . "Provider Documentation" section prepared by Raine Virgen. VTE Core Measure Inpt VTE Proph given/why not?: SCD's
[2016-07-18 09:36] VITALS: BP 130/79; PULSE 77; TEMP 36.4; O2SAT 96
== END 2016-07-18 11:17 | disposition home or self-care (01) | DRG 694 ==
LOC: ENRESERVTM → ENRESERVDT → EDBD 09:49 → C.EDB 09:51 → C.MED 11:41
PROVIDERS: ADMIT Hospitalist; ATTEND Internal Medicine
DX: N13.2 Hydronephrosis with renal and ureteral calculous obstruction (principal); Z88.0 Allergy status to penicillin